=== PATIENT | male | born 1975 | race Caucasian/White ===

== ENCOUNTER 2017-02-28 05:14 | Emergency (ER) | payer OTHER ==
[~2017-02-28] VITALS: Ht 190.5 cm; Wt 160.3 kg
[2017-02-28 05:21] VITALS: BP 166/102; PULSE 74; RESP 16; TEMP 98.3; O2SAT 98
[2017-02-28 05:39] VITALS: RESP 18; O2SAT 98
[2017-02-28 06:08] LABS: AUTOMATED NEUTROPHIL # 7.8 TH/MM3 (1.8-7.7); BASOPHIL # 0.1 TH/MM3 (0-0.2); BASOPHIL % 0.5 % (0.0-2.0); BLOOD, URINE NEG (NEG); EOSINOPHIL # 0.2 TH/MM3 (0-0.4); GLUCOSE,URINE NEG (NEG); HEMATOCRIT 40.4 % (39.0-51.0); HEMO FLAGS DIFF FINAL; KETONE, URINE TRACE mg/dL (NEG); LYMPH % 21.3 % (9.0-44.0); LYMPHOCYTE # 2.4 TH/MM3 (1.0-4.8); MEAN CELL VOLUME 85.1 FL (80.0-100.0); MEAN CORPUSCULAR HEMOGLOBIN 28.3 PG (27.0-34.0); MEAN CORPUSCULAR HGB CONC 33.2 % (32.0-36.0); MONO % 5.4 % (0.0-8.0); NEUT % 70.8 % (16.0-70.0); NITRITE,URINE NEG (NEG); PLATELET COUNT 281 TH/MM3 (150-450); RED BLOOD COUNT 4.74 MIL/MM3 (4.50-5.90); WHITE BLOOD COUNT 11.1 TH/MM3 (4.0-11.0)
[2017-02-28 06:16] LABS: CHLORIDE 104 MEQ/L (98-107); POTASSIUM 4.2 MEQ/L (3.5-5.1); SODIUM (NA) 138 MEQ/L (136-145); URINE COLOR YELLOW (YELLW/STRAW)
[2017-02-28 06:17] LABS: CALCIUM OXALATE CRYSTALS,URINE OCC /hpf; COMMENT (UR) CULT NOT INDICATED; COMMENT2 (UR) MUCOUS PRESENT; CULTURE IF INDICATED CULT NOT INDICATED; RBC, URINE 0-3 /hpf (0-3); WBC, URINE 0-2 /hpf (0-5)
[2017-02-28 06:20] LABS: ANION GAP 7 MEQ/L (5-15); BICARBONATE 27.3 MEQ/L (21.0-32.0); BLOOD UREA NITROGEN 17 MG/DL (7-18)
[2017-02-28 06:23] LABS: ALT (GPT) 28 U/L (12-78); AST (GOT) 16 U/L (15-37); GLOMERULAR FILTRATION RATE 60 ML/MIN (>89)
[2017-02-28 06:24] LABS: TOTAL BILIRUBIN ADULT 0.4 MG/DL (0.2-1.0)
[2017-02-28 06:26] LABS: ALKALINE PHOSPHATASE 92 U/L (45-117)
[2017-02-28 06:41] VITALS: BP 150/82; PULSE 82; RESP 18; O2SAT 98
[2017-02-28] MEDS ORDERED: ONDANSETRON HCL 4 MG/2 ML VIAL IV ONE (07:00)
[2017-02-28] MEDS: SODIUM CHLOR 0.9% 1000 ML INJ 1,000 ML IV SCH ×2 (07:00→07:55)
[2017-02-28] MEDS ORDERED: SODIUM CHLORIDE 0.9% FLUSH 10 ML FLUSH IV FLUSH PRN (07:00)
[2017-02-28] MEDS ORDERED: PERC7.5T13 PO (07:01)
[2017-02-28] MEDS ORDERED: PROC10TA PO (07:01)
--- NOTE | 2017-02-28 07:09 | PD ---
HPI Chief Complaint: Abdominal Pain Time Seen by Provider: 06:32 Travel History International Travel<30 days: No Contact w/Intl Traveler<30days: No Traveled to known affect area: No History of Present Illness HPI The patient is a 41-year-old male who complains of nausea, vomiting and abdominal pain for 4 hours. He denies any diarrhea or fever. The abdominal pain is 7/10 and in the right upper quadrant. He still has his gallbladder and appendix. The patient is from [place] and plans to leave for [place] tomorrow. [facility] Past Medical History Medical History: Denies Significant Hx Diminished Hearing: No Immunizations Current: No Tetanus Vaccination: Unknown Influenza Vaccination: No Past Surgical History Surgical History: No Previous Surgery Social History Alcohol Use: Yes (OCCASIONAL) Tobacco Use: No (QUIT 5 YEARS AGO) Substance Use: No Allergies-Medications (Allergen,Severity, Reaction): Coded Allergies: Penicillins (Verified Allergy, Severe, Anaphylaxis, 02/28/17) THROAT SWELLING Reported Meds & Prescriptions Reported Meds & Active Scripts Active No Active Prescriptions or Reported Medications Review of Systems Except as stated in HPI: all other systems reviewed are Neg Physical Exam Narrative GENERAL: The patient is obese, alert, oriented 3, slightly dehydrated- appearing in moderate apparent distress with his abdominal discomfort comfort. His vital signs show blood pressure 166/102 but are otherwise normal. SKIN: Focused skin assessment warm/dry. HEAD: Atraumatic. Normocephalic. EYES: Pupils equal and round. No scleral icterus. No injection or drainage. ENT: No nasal bleeding or discharge. Mucous membranes pink and moist. NECK: Trachea midline. No JVD. CARDIOVASCULAR: Regular rate and rhythm. No murmur appreciated. RESPIRATORY: No accessory muscle use. Clear to auscultation. Breath sounds equal bilaterally. GASTROINTESTINAL: Abdomen soft, with slight tenderness to direct palpation in the right upper quadrant, nondistended. Hepatic and splenic margins not palpable. No guarding or rebound is present and Flood's sign is negative at this time. MUSCULOSKELETAL: No obvious deformities. No clubbing. No cyanosis. No edema. NEUROLOGICAL: Awake and alert. No obvious cranial nerve deficits. Motor grossly within normal limits. Normal speech. PSYCHIATRIC: Appropriate mood and affect; insight and judgment normal. Data Data Last Documented VS Vital Signs Date Time Temp Pulse Resp B/P Pulse Ox O2 Delivery O2 Flow Rate FiO2 02/28/17 06:41 82 18 150/82 98 Room Air 02/28/17 05:21 98.3 Orders Complete Blood Count With Diff (02/28/17 05:28) Comprehensive Metabolic Panel (02/28/17 05:28) Urinalysis - C+S If Indicated (02/28/17 05:28) Iv Access Insert/Monitor (02/28/17 05:28) Oximetry (02/28/17 05:28) Lipase (02/28/17 05:28) Lipase (02/28/17 06:46) Ecg Monitoring (02/28/17 06:46) Sodium Chloride 0.9% Flush (Ns Flush) (02/28/17 07:00) Ns 1000ml Wide Open 2000 Ml/Hr (02/28/17 07:00) Ondansetron Inj (Zofran Inj) (02/28/17 07:00) Labs Laboratory Tests Test 02/28/17 06:00 White Blood Count 11.1 TH/MM3 Red Blood Count 4.74 MIL/MM3 Hemoglobin 13.4 GM/DL Hematocrit 40.4 % Mean Corpuscular Volume 85.1 FL Mean Corpuscular Hemoglobin 28.3 PG Mean Corpuscular Hemoglobin 33.2 % Concent Red Cell Distribution Width 13.0 % Platelet Count 281 TH/MM3 Mean Platelet Volume 8.4 FL Neutrophils (%) (Auto) 70.8 % Lymphocytes (%) (Auto) 21.3 % Monocytes (%) (Auto) 5.4 % Eosinophils (%) (Auto) 2.0 % Basophils (%) (Auto) 0.5 % Neutrophils # (Auto) 7.8 TH/MM3 Lymphocytes # (Auto) 2.4 TH/MM3 Monocytes # (Auto) 0.6 TH/MM3 Eosinophils # (Auto) 0.2 TH/MM3 Basophils # (Auto) 0.1 TH/MM3 CBC Comment DIFF FINAL Differential Comment Urine Color YELLOW Urine Turbidity CLEAR Urine pH 5.0 Urine Specific [place] 1.034 Urine Protein TRACE mg/dL Urine Glucose (UA) NEG mg/dL Urine Ketones TRACE mg/dL Urine Occult Blood NEG Urine Nitrite NEG Urine Bilirubin NEG Urine Leukocyte Esterase NEG Urine RBC 0-3 /hpf Urine WBC 0-2 /hpf Urine Squamous Epithelial 6-8 /hpf Cells Urine Calcium Oxalate Crystals OCC /hpf Urine Bacteria NONE /hpf Microscopic Urinalysis Comment CULT NOT INDICATED Sodium Level 138 MEQ/L Potassium Level 4.2 MEQ/L Chloride Level 104 MEQ/L Carbon Dioxide Level 27.3 MEQ/L Anion Gap 7 MEQ/L Blood Urea Nitrogen 17 MG/DL Creatinine 1.30 MG/DL Estimat Glomerular Filtration 60 ML/MIN Rate Random Glucose 139 MG/DL Calcium Level 8.7 MG/DL Total Bilirubin 0.4 MG/DL Aspartate Amino Transf 16 U/L (AST/SGOT) Alanine Aminotransferase 28 U/L (ALT/SGPT) Alkaline Phosphatase 92 U/L Total Protein 7.7 GM/DL Albumin 3.8 GM/DL Lipase 142 U/L [facility] Medical Decision Making Medical Screen Exam Complete: Yes Emergency Medical Condition: Yes Medical Record Reviewed: Yes Interpretation(s) The CBC shows a white count of 11,100 but is otherwise unremarkable. The complete metabolic profile is normal except for a GFR of 60 and glucose of 139. The lipase is normal. The urine shows specific gravity of 1.034, trace ketones, trace protein and is otherwise normal and culture is not indicated. Differential Diagnosis Gallbladder colic, acute cholecystitis, dehydration, electrolyte disorder, pancreatitis, viral gastritis, colitis, urinary tract infection Narrative Course The patient's abdominal pain has reduced markedly. This is the right upper quadrant pain. He says it was exquisitely tender in the right upper quadrant earlier tonight but it has gone down to almost being nontender in that area. He is from [place] and it would be ideal that he has a workup done in [place]. He was told to suspect gallbladder disease, likely gallbladder colic. There is no clinical or laboratory evidence of this time for acute cholecystitis Diagnosis Primary Impression: Gallbladder colic Additional Instructions: Stay away from fatty foods. Fatty foods make her gallbladder contract and make it worse. When you get to [place], follow-up with her primary care physician immediately. He can order test including a gallbladder ultrasound to define your problem. Do not drink alcohol or drive on the prochlorperazine or Percocet. Med/Other Pt SpecificInfo: Prescription(s) given Scripts Prochlorperazine Maleate 10 Mg Tab10 Mg PO Q6H PRN (NAUSEA OR VOMITING) #30 TAB Ref 0 Prov:Akhil Higuera MD 02/28/17 Oxycodone-Acetaminophen (Percocet)7.5-325 mg Tab1 Tab PO Q4H PRN (PAIN) #30 TAB Ref 0 Prov:Akhil Higuera MD 02/28/17 Disposition: 01 DISCHARGE HOME Condition: Stable Akhil Higuera MD Feb 28, 2017 07:09
[2017-02-28 08:35] VITALS: BP 154/79; PULSE 89; RESP 16; O2SAT 97
== END 2017-02-28 08:42 | disposition home or self-care (01) ==
LOC: PHED 05:14
DX: K80.20 Calculus of gallbladder without cholecystitis without obstruction (principal)
CPT/HCPCS: 80053; 81001; 83690; 85025; 96361; 96374; 99284; J2405; J7030